=== PATIENT | female | born 1965 | race Caucasian/White ===

== ENCOUNTER 2021-10-21 06:20 | Emergency (ER) | payer BC ==
[2021-10-21] MEDS ORDERED: Amoxicillin/Potassium Clav 875 MG TAB ONE (06:51)
== END 2021-10-21 07:02 | disposition home or self-care (01) ==
LOC: NAV ERS 06:20
DX: K02.9 Dental caries, unspecified (principal); J45.909 Unspecified asthma, uncomplicated
CPT/HCPCS: 99283

== ENCOUNTER 2023-04-03 18:21 | Emergency (ER) | payer BC ==
[2023-04-03] MEDS ORDERED: Rabies Vaccine Human 2.5 UNITS VIAL ONE (18:53)
== END 2023-04-03 19:25 | disposition home or self-care (01) ==
LOC: NAV ERS 18:21
DX: S60.410A Abrasion of right index finger, initial encounter (principal); E78.5 Hyperlipidemia, unspecified; Z79.899 Other long term (current) drug therapy; Z23 Encounter for immunization; W55.52XA Struck by raccoon, initial encounter
CPT/HCPCS: 90471; 90675

== ENCOUNTER 2023-04-06 10:10 | Emergency (ER) | payer BC ==
[2023-04-06] MEDS ORDERED: Rabies Immune Globulin/PF 300 UNITS/ML VIAL ONE (10:27)
[2023-04-06] MEDS ORDERED: Rabies Vaccine Human 2.5 UNITS VIAL ONE ×2 (10:46→10:48)
== END 2023-04-06 11:19 | disposition home or self-care (01) ==
LOC: NAV ERS 10:10
DX: Z23 Encounter for immunization (principal); E78.5 Hyperlipidemia, unspecified; J45.909 Unspecified asthma, uncomplicated
CPT/HCPCS: 90375; 90471; 90675

== ENCOUNTER 2024-07-15 16:08 | Emergency (ER) | payer BC ==
[2024-07-15 17:21] LABS: Base Excess-Venous -2.3 mmol/L (-2.0 to 3.0); Bicarbonate (HCO3v) 22.1 mmol/L (22.0-28.0); CO2 Tension (PvCO2) 36.1 mmHg (42.0-51.0); Calcium, Ionized 1.14 mmol/L (1.15-1.33); Chloride 95 mmol/L (98-107); Hemoglobin - Calc 15.5 g/dL (12.0-16.0); Potassium 3.6 mmol/L (3.5-5.1); Sodium 129 mmol/L (138-145); T. Carbon Dioxide 23.2 mmol/L (22.0-28.0); vO2 Saturation-calc 65.8 % (60.0-85.0)
[2024-07-15 17:26] LABS: Anion Gap 25 mmol/L (10-20); BUN (Urea Nitrogen) 24 mg/dL (9.8-20.1); Calc. Creatinine Clearance 0 mL/min (70-130); Calcium 9.3 mg/dL (7.8-10.44); Carbon Dioxide 19 mmol/L (22-29); Chloride 91 mmol/L (98-107); Estimated GFR 64; Magnesium 1.8 mg/dL (1.6-2.6); Potassium 3.8 mmol/L (3.5-5.1); Sodium 131 mmol/L (136-145)
[2024-07-15 17:29] LABS: Glucose 450 mg/dL (70-105)
[2024-07-15] MEDS ORDERED: Insulin Regular, Human 100 UNIT/ML 10 ML VIAL ONE (17:41)
[2024-07-15 18:26] LABS: Bilirubin Negative (Negative); Blood, Urine Negative (Negative); Clarity Clear (Clear); Glucose, Urine (Dipstick) 500 mg/dL (Negative); Ketone, Urine > or equal to 80 mg/dL (Negative); Leukocyte Negative (Negative); Nitrite Negative (Negative); Protein, Urine (Dipstick) Negative (Neg-Trace); Urobilinogen 0.2 mg/dL (Less than 2); pH, Urine 5.5 (5.0-9.0)
[2024-07-15 18:32] LABS: Urine Culture Reflex No No
[2024-07-15 18:34] LABS: CAUTI Indications for Culture Fever or rigors; Squamous Epithelial 0-3 HPF (0-3); WBC/HPF 0-3 HPF (0-3)
== END 2024-07-15 18:50 | disposition home or self-care (01) ==
LOC: NAV ERS 16:08
DX: E11.65 Type 2 diabetes mellitus with hyperglycemia (principal); E11.10 Type 2 diabetes mellitus with ketoacidosis without coma; E86.0 Dehydration; E78.5 Hyperlipidemia, unspecified; Z79.899 Other long term (current) drug therapy
CPT/HCPCS: 36416; 80048; 81001; 82010; 82330; 82803; 83735; 85014; 96361; 96365; J1815

== ENCOUNTER 2024-12-23 05:42 | Emergency (ER) | payer BC ==
[2024-12-23] MEDS ORDERED: Promethazine HCl 25 MG/ML VIAL ONE (06:21)
[2024-12-23] MEDS ORDERED: Sodium Chloride 0.9% 1,000 ML ONE (06:21)
[2024-12-23 06:40] LABS: #Basophils 0.1 thou/uL (0.0-0.2); #Eosinophils 0.2 thou/uL (0.0-0.7); #Lymphocytes 1.8 thou/uL (1.20-3.40); #Monocytes 0.9 thou/uL (0.11-0.59); #Neutrophils 8.5 thou/uL (1.40-6.50); %Basophils 0.6 % (0.0-1.0); %Eosinophils 1.4 % (0.0-10.0); %Lymphocytes 15.7 % (21.0-51.0); %Monocytes 7.7 % (0.0-10.0); %Neutrophils 74.6 % (42.0-75.0); Hematocrit 45.4 % (36.0-47.0); Hemoglobin 13.8 g/dL (12.0-16.0); Mean Corpuscular HGB CONC 30.4 g/dL (32.0-36.0); Mean Corpuscular Hemoglobin 23.8 pg (27.0-31.0); Mean Corpuscular Volume 78.4 fl (78.0-98.0); Mean Platelet Volume 9.2 fL (7.4-10.4); Platelet Count 369 10x3/uL (130-400); RBC Distribution Width 12.1 % (11.5-14.5); Red Blood Cell (RBC) Count 5.79 mill/uL (4.20-5.40); White Blood Cell (WBC) Count 11.4 10x3/uL (4.8-10.8)
[2024-12-23 06:44] LABS: ALT (SGPT) 9 U/L (Less than 34); AST (SGOT) 15 U/L (11-34); Albumin 3.7 g/dL (3.1-4.5); Alkaline Phosphatase 126 U/L (40-110); Anion Gap 13 mmol/L (10-20); BUN (Urea Nitrogen) 16 mg/dL (9.8-20.1); Bilirubin, Total 0.6 mg/dL (0.3-1.2); Calc. Creatinine Clearance 0 mL/min (70-130); Calcium 9.9 mg/dL (7.8-10.44); Carbon Dioxide 27 mmol/L (23-31); Chloride 103 mmol/L (98-107); Estimated GFR 99; Globulin 3.6 g/dL (2.4-3.5); Glucose 158 mg/dL (80-115); Lipase 11 U/L (8-78); Potassium 3.7 mmol/L (3.5-5.1); Protein, Total 7.3 g/dL (5.8-8.1); Sodium 139 mmol/L (136-145)
== END 2024-12-23 07:45 | disposition home or self-care (01) ==
LOC: NAV ERS 05:42
DX: R11.2 Nausea with vomiting, unspecified (principal); R19.7 Diarrhea, unspecified; E11.9 Type 2 diabetes mellitus without complications
CPT/HCPCS: 80053; 83690; 85025; 96361; 96374; J2550; J7030

== ENCOUNTER 2025-09-14 18:21 | Emergency (ER) | payer BC ==
[2025-09-14] MEDS ORDERED: Amoxicillin/Potassium Clav 875 MG TAB ONE ×2 (19:02→19:16)
== END 2025-09-14 19:23 | disposition home or self-care (01) ==
LOC: NAV ERS 18:21
DX: S61.252A Open bite of right middle finger without damage to nail, initial encounter (principal); E11.9 Type 2 diabetes mellitus without complications; W55.01XA Bitten by cat, initial encounter
CPT/HCPCS: 99283